=== PATIENT | male | born 1975 | race Caucasian/White ===

== ENCOUNTER 2017-08-05 18:25 | Emergency (ER) | payer MEDICAID | END 2017-08-05 20:00 | disposition left against medical advice (07) | LOC: D.ER 18:25 | DX: M79.1 Myalgia (principal) ==

== ENCOUNTER 2020-05-23 13:09 | Emergency (ER) | payer MEDICAID ==
[~2020-05-23] VITALS: Ht 180.3 cm; Wt 93.2 kg
[2020-05-23 13:11] VITALS: Ht 180.3 cm; Wt 93.2 kg
[2020-05-23 13:40] LABS: BASOPHILS 0.8 % (0-2); EOSINOPHILS 2.3 % (0-7); HEMATOCRIT 43.2 % (42.0-54.0); IMMATURE GRANULOCYTES 0.3 % (0-5); LYMPHOCYTES 18.9 % (15-50); MCH 32.1 pg (26.0-34.0); MCHC 34.7 g/dL (31.0-37.0); MCV 92.3 fL (80.0-100.0); MEAN PLATELET VOLUME 8.5 fL (7.4-10.4); MONOCYTES 7.3 % (2-11); NEUTROPHILS 70.4 % (40-80); PLATELET COUNT 374 10x3/uL (130-400); RBC 4.68 10x6/uL (4.20-6.10); RDW 13.1 % (11.5-14.5); WBC 11.5 10x3/uL (4.8-10.8)
[2020-05-23 13:49] LABS: UDS - AMPHET POSITIVE QUAL (NEGATIVE); UDS - BARB NEGATIVE QUAL (NEGATIVE); UDS - BENZO NEGATIVE QUAL (NEGATIVE); UDS - COCAINE NEGATIVE QUAL (NEGATIVE); UDS - OPIATE NEGATIVE QUAL (NEGATIVE); UDS - PCP NEGATIVE QUAL (NEGATIVE); UDS - THC NEGATIVE QUAL (NEGATIVE)
--- NOTE | 2020-05-23 14:00 | NUR ---
PT SUICIDE ASSESSMENT COMPLETED. PT DENIES SI AT THIS TIME. PT BEHAVIOR AND ASSESSMENT RESULTS REVIEWED WITH DR. FULTON. PT LOW RISK PER DR. FULTON. RESOURCES PROVIDED AND REVIEWED WITH PT. PT STATES UNDERSTANDING.
[2020-05-23 14:09] LABS: CALC OSMOLALITY 274 mosm/kg (275-300); CALCIUM 9.4 mg/dL (8.5-10.1); CARBON DIOXIDE 19.1 mmol/L (21.0-32.0); CHLORIDE - SERUM 104 mmol/L (98-107); CREATININE - SERUM 1.1 mg/dL (0.6-1.3); GLUCOSE 103 mg/dL (74-106); POTASSIUM - SERUM 3.5 mmol/L (3.5-5.1); SODIUM 137 mmol/L (136-145); UREA NITROGEN 15 mg/dL (7-18); eGFR NON AFRICAN AMERICAN 76 mL/min (90-120)
[2020-05-23 14:10] LABS: APTT 27.7 SECONDS (22.8-39.4)
[2020-05-23 14:14] LABS: INR 0.93 (0.85-1.17); PROTIME 12.4 SECONDS (11.6-15.0)
[2020-05-23 14:25] LABS: ALBUMIN 3.9 g/dL (3.4-5.0); ALKALINE PHOSPHATASE 86 U/L (30-120); ALT (SGPT) 37 U/L (10-68); CKMB 8.9 U/L (0.0-3.6); CREATINE KINASE 510 UL (21-232); MAGNESIUM - SERUM 1.8 mg/dL (1.8-2.4)
[2020-05-23 14:26] LABS: TROPONIN-I < 0.017 ng/mL (0.000-0.060)
[2020-05-23 17:25] LABS: CKMB 6.2 U/L (0.0-3.6); CREATINE KINASE 430 UL (21-232)
[2020-05-23 17:31] LABS: TROPONIN-I < 0.017 ng/mL (0.000-0.060)
[2020-05-23 20:02] VITALS: BP 130/95
== END 2020-05-23 20:02 | disposition home or self-care (01) ==
LOC: D.ER 13:09
PROVIDERS: Family Medicine
DX: R07.9 Chest pain, unspecified (principal); R07.89 Other chest pain; D72.829 Elevated white blood cell count, unspecified; F15.10 Other stimulant abuse, uncomplicated; I10 Essential (primary) hypertension; Z72.0 Tobacco use

== ENCOUNTER → 2020-05-23 | Emergency (ER) | payer MEDICARE, MEDICAID ==
[2020-05-23 13:11] VITALS: BMI 28.6
== END | disposition home or self-care (01) ==
LOC: D.ER 20:17
DX: R07.9 Chest pain, unspecified (principal)

== ENCOUNTER 2020-05-28 00:03 | Emergency (ER) | payer MEDICARE, MEDICAID ==
[~2020-05-28] VITALS: Ht 180.3 cm; Wt 93.2 kg
[2020-05-28 00:05] VITALS: BP 129/78; Ht 180.3 cm; Wt 93.2 kg
[2020-05-28] MEDS ORDERED: NORVASC10 MG PO (00:06)
[2020-05-28] MEDS ORDERED: PRAVACHOL20 MG PO (00:07)
[2020-05-28] MEDS ORDERED: VALSARTAN-HCTZ1 EAC3 PO (00:07)
[2020-05-28 00:53] LABS: CALC OSMOLALITY 273 mosm/kg (275-300); CALCIUM 8.4 mg/dL (8.5-10.1); CARBON DIOXIDE 26.4 mmol/L (21.0-32.0); CHLORIDE - SERUM 102 mmol/L (98-107); CREATININE - SERUM 1.3 mg/dL (0.6-1.3); GLUCOSE 101 mg/dL (74-106); POTASSIUM - SERUM 3.3 mmol/L (3.5-5.1); SODIUM 136 mmol/L (136-145); UREA NITROGEN 18 mg/dL (7-18); eGFR NON AFRICAN AMERICAN 63 mL/min (90-120)
[2020-05-28 00:55] LABS: BASOPHILS 0.9 % (0-2); EOSINOPHILS 4.5 % (0-7); HEMATOCRIT 42.5 % (42.0-54.0); HEMOGLOBIN 14.4 g/dL (13.5-17.5); IMMATURE GRANULOCYTES 0.4 % (0-5); LYMPHOCYTES 34.7 % (15-50); MCHC 33.9 g/dL (31.0-37.0); MCV 94.4 fL (80.0-100.0); MEAN PLATELET VOLUME 8.5 fL (7.4-10.4); NEUTROPHILS 51.5 % (40-80); PLATELET COUNT 400 10x3/uL (130-400); RDW 13.2 % (11.5-14.5); WBC 11.4 10x3/uL (4.8-10.8)
[2020-05-28 01:48] LABS: ALBUMIN 3.8 g/dL (3.4-5.0); ALKALINE PHOSPHATASE 85 U/L (30-120); ALT (SGPT) 33 U/L (10-68); BILIRUBIN - TOTAL 0.22 mg/dL (0.2-1.3); C-REACTIVE PROTEIN 0.2 mg/dL (0.0-0.9); CREATINE KINASE 325 UL (21-232); MAGNESIUM - SERUM 1.9 mg/dL (1.8-2.4); PROTEIN - SERUM 7.6 g/dL (6.4-8.2); TROPONIN-I < 0.017 ng/mL (0.000-0.060)
[2020-05-28 01:52] LABS: CKMB 6.2 U/L (0.0-3.6)
[2020-05-28] MEDS ORDERED: CLEOCIN HCL300 MG PO (02:07)
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
--- NOTE | 2020-05-28 03:00 | NUR ---
DISCUSSED WITH ER DR. GRAY AND HE DOES NOT FEEL THAT THIS PATIENT NEEDS PSYCHIATRIC PLACEMENT AT THIS TIME.
== END 2020-05-28 03:47 | disposition home or self-care (01) ==
LOC: D.ER 00:03
PROVIDERS: Family Medicine
DX: M79.604 Pain in right leg (principal); L03.115 Cellulitis of right lower limb; I10 Essential (primary) hypertension; Z72.0 Tobacco use

== ENCOUNTER 2020-05-28 05:33 | Emergency (ER) | payer MEDICARE, MEDICAID ==
[~2020-05-28] VITALS: Ht 180.3 cm; Wt 93.2 kg
[~2020-05-28 05:33] MED LIST: CLEOCIN HCL300 MG PO; NORVASC10 MG PO; PRAVACHOL20 MG PO; VALSARTAN-HCTZ1 EAC3 PO
[2020-05-28 05:40] VITALS: BP 126/85; Ht 180.3 cm; Wt 93.2 kg
== END 2020-05-28 06:29 | disposition home or self-care (01) ==
LOC: D.ER 05:33
DX: F15.10 Other stimulant abuse, uncomplicated (principal); F22 Delusional disorders; L03.115 Cellulitis of right lower limb; I10 Essential (primary) hypertension; Z72.0 Tobacco use; R10.9 Unspecified abdominal pain

== ENCOUNTER 2021-01-04 20:22 | Emergency (ER) | payer MEDICARE, MEDICAID ==
[~2021-01-04] VITALS: Ht 180.3 cm; Wt 81.8 kg
[2021-01-04 20:27] VITALS: Ht 180.3 cm; Wt 81.8 kg
[2021-01-04 22:49] LABS: BILIRUBIN NEGATIVE (NEGATIVE); KETONE NEGATIVE (NEGATIVE); NITRITE NEGATIVE (NEGATIVE); UROBILINOGEN NORMAL mg/dL (< 2)
[2021-01-04 22:58] LABS: BASOPHILS 1.1 % (0-2); EOSINOPHILS 6.2 % (0-7); HEMATOCRIT 41.1 % (42.0-54.0); HEMOGLOBIN 14.2 g/dL (13.5-17.5); IMMATURE GRANULOCYTES 0.2 % (0-5); LYMPHOCYTE ABS# 3.65 10x3/uL (1.32-3.57); LYMPHOCYTES 29.9 % (15-50); MCH 31.6 pg (26.0-34.0); MCHC 34.5 g/dL (31.0-37.0); MCV 91.3 fL (80.0-100.0); MEAN PLATELET VOLUME 8.4 fL (7.4-10.4); MONOCYTES 10.2 % (2-11); NEUTROPHIL ABS# 6.39 10x3/uL (1.78-5.38); NEUTROPHILS 52.4 % (40-80); PLATELET COUNT 276 10x3/uL (130-400); RDW 13.1 % (11.5-14.5); WBC 12.2 10x3/uL (4.8-10.8)
[2021-01-04 23:00] LABS: CALC OSMOLALITY 271 mosm/kg (275-300); CALCIUM 8.7 mg/dL (8.5-10.1); CARBON DIOXIDE 22.4 mmol/L (21.0-32.0); CHLORIDE - SERUM 104 mmol/L (98-107); CREATININE - SERUM 0.9 mg/dL (0.6-1.3); GLUCOSE 86 mg/dL (74-106); POTASSIUM - SERUM 3.3 mmol/L (3.5-5.1); SODIUM 137 mmol/L (136-145); UREA NITROGEN 11 mg/dL (7-18); eGFR NON AFRICAN AMERICAN > 90 mL/min (90-120)
[2021-01-04 23:00] LABS: UDS - AMPHET POSITIVE QUAL (NEGATIVE); UDS - BARB NEGATIVE QUAL (NEGATIVE); UDS - BENZO NEGATIVE QUAL (NEGATIVE); UDS - COCAINE NEGATIVE QUAL (NEGATIVE); UDS - OPIATE NEGATIVE QUAL (NEGATIVE); UDS - PCP NEGATIVE QUAL (NEGATIVE); UDS - THC NEGATIVE QUAL (NEGATIVE)
[2021-01-04 23:06] LABS: ALBUMIN 3.7 g/dL (3.4-5.0); ALKALINE PHOSPHATASE 74 U/L (30-120); ALT (SGPT) 32 U/L (10-68); BILIRUBIN - TOTAL 0.61 mg/dL (0.2-1.3); MAGNESIUM - SERUM 1.9 mg/dL (1.8-2.4); PROTEIN - SERUM 7.1 g/dL (6.4-8.2)
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
[2021-01-05 03:25] LABS: SARS-CoV-2 ANTIGEN NEGATIVE- SARS-COV-2 (NEGATIVE)
[2021-01-05 10:03] VITALS: BP 123/87
== END 2021-01-05 10:04 ==
LOC: D.ER 20:22
PROVIDERS: Family Medicine
DX: F23 Brief psychotic disorder (principal); F15.10 Other stimulant abuse, uncomplicated; F03.90 Unspecified dementia, unspecified severity, without behavioral disturbance, psychotic disturbance, mood disturbance, and anxiety; R44.3 Hallucinations, unspecified